=== PATIENT | male | born 1985 | race Two or more races ===

== ENCOUNTER 2023-09-01 12:26 | Emergency (ER) | payer OTHER ==
[~2023-09-01] VITALS: Ht 165.1 cm; Wt 65.9 kg
[2023-09-01 12:26] VITALS: BP 152/99; RESP 18; O2SAT 97
[2023-09-01 12:31] VITALS: PULSE 147
[2023-09-01] MEDS: SODIUM CHLORIDE 0.9% 1,000 ML IV ONE (12:59)
[2023-09-01] MEDS: lamoTRIgine 100 MG TAB PO ONE (13:00)
== END 2023-09-01 13:06 | disposition left against medical advice (07) ==
LOC: ER 12:26 → EDBD 12:26 → ER 13:06
DX: R56.9 Unspecified convulsions (principal)
CPT/HCPCS: 93005